=== PATIENT | female | born 1955 | race Caucasian/White ===

== ENCOUNTER 2018-07-03 10:00 | Outpatient (AMBR) | payer MEDICAID, SELFPAY ==
--- NOTE | 2018-06-22 08:58 | PT.ODAYNRPT ---
PT Outpatient Daily Note Date of Service: June 22, 2018 OP Daily Note Pediatric or Adult Patient: Adult PT >13 Visit Reasons: neck pain Outpatient Physical Therapy Treatment Date: 06/22/18 Subjective: Patient is feeling better. Less complain of headaches as per patient Objective: pls see FS Assessment: patient were given HEP to be done at home. Soft tissue mobilization and gentle passive stretching doing cervical flexion and extension and lateral flexion. HMP applied prior to therapy. No redness noted after application of HMP. Plan: to continue POC toward goals. Pain Present Currently: Yes (4/10) Length of Time (minutes) of Treatment: 30 Minutes
--- NOTE | 2018-07-03 11:26 | PT.ODAYNRPT ---
PT Outpatient Daily Note Date of Service: July 03, 2018 OP Daily Note Visit Reasons: neck pain Outpatient Physical Therapy Treatment Date: 07/03/18 Subjective: pt doing better upon visit today. Objective: see flow sheet. Assessment: during STM palpated tightness of the UT on both sides of the neck. pt had no complaints during STM nor facial expressions. added chin tucks using thera band and she did well with no difficulties understanding the exercise and no excessive neck motion. Plan: continue POC per PT. Length of Time (minutes) of Treatment: 30 Minutes Office Procedures PT Procedures PT Date of Service: 06/22/18 Therapeutic Exercise 30 minutes: Yes PT Procedures PT Date of Service: 07/03/18 Therapeutic Exercise 30 minutes: Yes
== END 2018-07-12 23:59 | disposition home or self-care (01) ==
PROVIDERS: PCP Family Medicine; Referring Provider Family Medicine
DX: M54.2 Cervicalgia (principal)
CPT/HCPCS: 97110

== ENCOUNTER 2018-08-03 10:00 | Outpatient (AMBR) | payer MEDICAID, SELFPAY ==
--- NOTE | 2018-07-13 09:37 | PT.ODAYNRPT ---
PT Outpatient Daily Note Date of Service: July 13, 2018 OP Daily Note Pediatric or Adult Patient: Adult PT >13 Visit Reasons: neck Outpatient Physical Therapy Treatment Date: 07/13/18 Subjective: patient was seen today for neck pain. No new complaints. Objective: Pls see FS Assessment: patient were given STM, hmp and thera ex for neck strengthening and cervical traction, gentle passive stretching of neck. patient were also educated about HEP. no increase of pain after therapy. no redness after application of HMP Plan: Thera ex Pain Present Currently: Yes Length of Time (minutes) of Treatment: 30 Minutes
--- NOTE | 2018-07-16 09:03 | PT.ODAYNRPT ---
PT Outpatient Daily Note Date of Service: July 16, 2018 OP Daily Note Pediatric or Adult Patient: Adult PT >13 Visit Reasons: neck Outpatient Physical Therapy Treatment Date: 07/16/18 Subjective: I feel better. Objective: pls see FS Assessment: patient were given HMP and STM with thera ex to be done at home. Patient is complaint with HEP like chin tuck and Self stretching at home. Cervical traction x 5mins. no complain of dizziness noted after therapy. Plan: Thera ex Pain Present Currently: Yes (01/20) Length of Time (minutes) of Treatment: 30 Minutes Office Procedures PT Procedures PT Date of Service: 07/13/18 Therapeutic Exercise 30 minutes: Yes
--- NOTE | 2018-07-23 09:07 | PT.ODAYNRPT ---
PT Outpatient Daily Note Date of Service: July 23, 2018 OP Daily Note Visit Reasons: neck Outpatient Physical Therapy Treatment Date: 07/23/18 Subjective: I feel better. Objective: pls see FS Assessment: Patient were reminded about her home stretching and Cervical exercise. Patient feels better on the last treatment session. no new complaints. Plan: to continue POC toward goals. Length of Time (minutes) of Treatment: 30 Minutes Office Procedures PT Procedures PT Date of Service: 07/16/18 Therapeutic Exercise 30 minutes: Yes PT Procedures PT Date of Service: 07/13/18 Therapeutic Exercise 30 minutes: Yes
--- NOTE | 2018-07-30 13:41 | PT.ODAYNRPT ---
PT Outpatient Daily Note Date of Service: July 30, 2018 OP Daily Note Visit Reasons: neck Outpatient Physical Therapy Treatment Date: 07/30/18 Subjective: pt reported neck feeling better today. Objective: see flow sheet. Assessment: pt is very shy and very little feedback during treatment. after HP plus e-stim for a few mins, STM to the neck which resulted in less tension of the neck. pt has no complaints and denies increase in pain. pt seemes to have tension to both sides during stretches of the neck. finished with C/S traction in which she did well with and was able to get up from supine with no difficulties. Plan: continue POC per PT. Length of Time (minutes) of Treatment: 30 Minutes Office Procedures PT Procedures PT Date of Service: 07/16/18 Therapeutic Exercise 30 minutes: Yes PT Procedures PT Date of Service: 07/23/18 Therapeutic Exercise 30 minutes: Yes PT Procedures PT Date of Service: 07/13/18 Therapeutic Exercise 30 minutes: Yes PT Procedures PT Date of Service: 07/30/18 Therapeutic Exercise 30 minutes: Yes
--- NOTE | 2018-08-03 14:45 | PT.ODAYNRPT ---
PT Outpatient Daily Note Date of Service: August 03, 2018 OP Daily Note Visit Reasons: neck Outpatient Physical Therapy Treatment Date: 08/03/18 Subjective: pt was coming from a dance practice at the [facility] in [facility] [address] in which pt had no complaints. she walked in fine. Objective: see flow sheet. Assessment: palpated less tension of the neck during STM after the hotpack. used RTB for chin tucks in which pt still needs more practice as she tends to flex the neck instead of protract the neck. mod cuing and demonstration required for correction of the chin tucks. Plan: continue POC per PT. Length of Time (minutes) of Treatment: 30 Minutes Office Procedures PT Procedures PT Date of Service: 07/16/18 Therapeutic Exercise 30 minutes: Yes PT Procedures PT Date of Service: 07/23/18 Therapeutic Exercise 30 minutes: Yes PT Procedures PT Date of Service: 07/13/18 Therapeutic Exercise 30 minutes: Yes PT Procedures PT Date of Service: 07/30/18 Therapeutic Exercise 30 minutes: Yes PT Procedures PT Date of Service: 08/03/18 Therapeutic Exercise 30 minutes: Yes
--- NOTE | 2018-08-03 16:21 | PTNOTE_ITS ---
PT Outpatient Daily Note Date of Service: August 03, 2018 OP Daily Note Visit Reasons: neck Outpatient Physical Therapy Treatment Date: 08/03/18 Subjective: pt was coming from a dance practice at the [facility] in [facility] in which pt had no complaints. she walked in fine. Objective: see flow sheet. Assessment: palpated less tension of the neck during STM after the hotpack. used RTB for chin tucks in which pt still needs more practice as she tends to flex the neck instead of protract the neck. mod cuing and demonstration required for correction of the chin tucks. Plan: continue POC per PT. Length of Time (minutes) of Treatment: 30 Minutes Office Procedures PT Procedures PT Date of Service: 07/16/18 Therapeutic Exercise 30 minutes: Yes PT Procedures PT Date of Service: 07/23/18 Therapeutic Exercise 30 minutes: Yes PT Procedures PT Date of Service: 07/13/18 Therapeutic Exercise 30 minutes: Yes PT Procedures PT Date of Service: 07/30/18 Therapeutic Exercise 30 minutes: Yes PT Procedures PT Date of Service: 08/03/18 Therapeutic Exercise 30 minutes: Yes
== END 2018-08-12 23:59 | disposition home or self-care (01) ==
PROVIDERS: PCP Family Medicine; Referring Provider Family Medicine
DX: M54.2 Cervicalgia (principal)
CPT/HCPCS: 97110